=== PATIENT | female | born 1950 | race Caucasian/White ===

== ENCOUNTER 2018-06-15 14:57 | Day surgery (SDC) | payer OTHER ==
[~2018-06-15] VITALS: Ht 165.1 cm; Wt 48.0 kg
[~2018-06-15 14:57] MED LIST: CARB1TAB46 PO; DIAZ5TAB4 PO; HYDR-3245 PO; HYDR1TAB12 PO; LEVO100T PO; METH5TAB6 PO
[2018-06-15] MEDS ORDERED: DIAZEPAM 5 MG TABLET PO ONE (15:30)
[2018-06-15] MEDS ORDERED: SCOPOLAMINE PATCH, 1.5MG PATCH.TD72 TD ONE (15:30)
[2018-06-15] MEDS ORDERED: GABAPENTIN 300 MG CAPSULE PO ONE (15:30)
[2018-06-15] MEDS ORDERED: ONDANSETRON ODT 8 MG PO ONE (15:30)
[2018-06-15] MEDS ORDERED: ACETAMINOPHEN 500 MG TABLET PO ONE (15:30)
[2018-06-15 16:02] VITALS: BP 146/99
[2018-06-15] MEDS ORDERED: FENTANYL PF 250 MCG/5ML ONE (16:05)
[2018-06-15] MEDS ORDERED: MIDAZOLAM 1 MG/ML, 2ML ONE (16:05)
[2018-06-15] MEDS ORDERED: FENTANYL PF 100 MCG/2ML ONE ×2 (16:07→17:31)
[2018-06-15] MEDS ORDERED: LACTATED RINGERS 1,000 ML IV SCH (16:09)
[2018-06-15] MEDS ORDERED: PROPOFOL 50 ML ONE (16:10)
[2018-06-15] MEDS ORDERED: CEFAZOLIN 1,000 MG ONE (16:27)
[2018-06-15] MEDS ORDERED: ROCURONIUM 10 MG/ML,10ML ONE (16:27)
[2018-06-15] MEDS ORDERED: KETOROLAC 30 MG/1 ML ONE (16:27)
[2018-06-15] MEDS ORDERED: PROPOFOL 10 MG/ML, 20ML ONE (16:27)
[2018-06-15] MEDS ORDERED: DEXAMETHASONE 4 MG/ML, 1ML ONE (16:27)
[2018-06-15] MEDS ORDERED: LIDOCAINE-MPF 2% ,5ML ONE (16:27)
[2018-06-15] MEDS ORDERED: SUGAMMADEX 200 MG/2 ML IVPush ONE (16:57)
[2018-06-15] MEDS ORDERED: ONDANSETRON 2MG/ML, 2ML IV PRN (17:30)
[2018-06-15] MEDS ORDERED: OXYcodone 5 MG/5 ML ORAL.SOL UDC PO PRN (17:30)
[2018-06-15] MEDS ORDERED: PROMETHAZINE 25 MG SUPP PR PRN (17:30)
[2018-06-15] MEDS ORDERED: FENTANYL PF 100 MCG/2ML IV PRN (17:30)
[2018-06-15] MEDS ORDERED: MIDAZOLAM 1 MG/ML, 2ML IV PRN (17:30)
[2018-06-15] MEDS ORDERED: HYDROmorphone 1 MG/ML, 1ML IV PRN (17:30)
[2018-06-15] MEDS ORDERED: LABETALOL 5MG/ML, 20ML IV PRN (17:30)
[2018-06-15] MEDS ORDERED: MEPERIDINE/PF 25MG/0.5ML IVPush PRN (17:30)
[2018-06-15] MEDS ORDERED: DIAZEPAM 5 MG/ML, 2ML IVPush PRN (17:30)
[2018-06-15] MEDS ORDERED: ALBUTEROL/IPRATROPIUM 2.5MG/0.5MG, 3 ML NPPB PRN (17:30)
[2018-06-15] MEDS ORDERED: OXYcodone 5 MG/5 ML ORAL.SOL UDC ONE (17:31)
[2018-06-15] MEDS ORDERED: OXYcodone/APAP 7.5/325MG TABLET PO PRN (19:20)
== END 2018-06-15 19:41 | disposition home or self-care (01) ==
LOC: OR 14:57 → 4NOR 18:32 → OR 19:41
PROVIDERS: ATTEND Plastic Surgery
DX: N65.1 Disproportion of reconstructed breast (principal); I10 Essential (primary) hypertension; E78.5 Hyperlipidemia, unspecified; I25.10 Atherosclerotic heart disease of native coronary artery without angina pectoris; Z90.11 Acquired absence of right breast and nipple
CPT/HCPCS: 11970; 36415; 80047; 93005; J0690; J1100; J1885; J2250; J2704; J3490; Q0162; C1789; G0378; J3010